=== PATIENT | male | born 1985 | race African-American/Black ===

== ENCOUNTER 2022-05-26 18:36 | Emergency (ER) | payer MEDICAID ==
[~2022-05-26] VITALS: Ht 177.8 cm; Wt 74.8 kg
[2022-05-26] MEDS ORDERED: predniSONE 20 MG TABLET ONE (18:50)
--- NOTE | 2022-05-26 18:53 | NUR ---
PREDNISONE PO GIVEN INDICATED, JESUS MANUEL WELL
[2022-05-26] MEDS ORDERED: ALBUTEROL FS 2.5 MG/3 ML VIAL.NEB ONE ×2 (18:56→19:58)
[2022-05-26] MEDS ORDERED: IPRATROPIUM NEB FS 0.5 MG/2.5 ML AMPUL.NEB ONE ×2 (18:56→19:58)
[2022-05-26] MEDS ORDERED: ALBUTEROL FS 2.5 MG/3 ML VIAL.NEB NEB ONE ×2 (19:00→20:00)
[2022-05-26] MEDS ORDERED: predniSONE 20 MG TABLET PO ONE (19:00)
[2022-05-26] MEDS ORDERED: IPRATROPIUM NEB FS 0.5 MG/2.5 ML AMPUL.NEB NEB ONE ×2 (19:00→20:00)
[2022-05-26] MEDS ORDERED: ALBU8.5H8 INH (19:14)
[2022-05-26] MEDS ORDERED: PRED50TA PO (19:14)
--- NOTE | 2022-05-26 20:01 | NUR ---
RT AT PT'S BEDSIDE FOR BREATHING TX
[2022-05-26] MEDS ORDERED: SILD20TA2 PO (20:27)
--- NOTE | 2022-05-26 20:35 | NUR ---
Patient discharged to home in stable condition. Written and verbal after care instructions given. Patient verbalizes understanding of instruction.
[2022-05-26 20:38] VITALS: BP 108/68
== END 2022-05-26 20:43 | disposition home or self-care (01) ==
LOC: ER 18:40
DX: J45.901 Unspecified asthma with (acute) exacerbation (principal); J45.909 Unspecified asthma, uncomplicated; Z79.51 Long term (current) use of inhaled steroids; Z79.899 Other long term (current) drug therapy
CPT/HCPCS: 99285; 94640 ×2; J7512

== ENCOUNTER 2024-08-14 02:45 | Emergency (ER) | payer MEDICAID ==
[~2024-08-14] VITALS: Ht 177.8 cm; Wt 72.6 kg
[~2024-08-14 02:45] MED LIST: ALBU8.5H8 INH; PRED50TA PO; SILD20TA2 PO
[2024-08-14] MEDS ORDERED: dexaMETHasone SOD PHOSPHATE 4 MG/ML VIAL ONE (03:18)
[2024-08-14] MEDS: IPRATROPIUM NEB FS 0.5 MG/2.5 ML AMPUL.NEB NEB ONE (03:23)
[2024-08-14] MEDS: ALBUTEROL FS 2.5 MG/0.5 ML VIAL.NEB NEB ONE ×2 (03:23→05:13)
[2024-08-14 03:24] VITALS: O2SAT 99
[2024-08-14] MEDS ORDERED: ALBUTEROL FS 2.5 MG/0.5 ML VIAL.NEB ONE ×2 (03:28→05:15)
[2024-08-14] MEDS ORDERED: IPRATROPIUM NEB FS 0.5 MG/2.5 ML AMPUL.NEB ONE ×2 (03:28→05:15)
[2024-08-14] MEDS: dexaMETHasone SOD PHOSPHATE 4 MG/ML VIAL IM ONE (03:30)
[2024-08-14 03:34] VITALS: O2SAT 99
[2024-08-14 03:44] VITALS: O2SAT 99
[2024-08-14] MEDS ORDERED: dexaMETHasone SOD PHOSPHATE 0 ML ONE (04:42)
[2024-08-14] MEDS ORDERED: PRED50TA PO (04:59)
[2024-08-14] MEDS ORDERED: predniSONE 20 MG TABLET ONE (05:09)
[2024-08-14] MEDS: predniSONE 50 MG TABLET PO ONE (05:12)
[2024-08-14 05:13] VITALS: O2SAT 99
[2024-08-14 05:18] VITALS: O2SAT 99
[2024-08-14 05:29] VITALS: BP 153/72; TEMP 97.5; O2SAT 99
== END 2024-08-14 05:29 | disposition home or self-care (01) ==
LOC: ER 02:47
DX: J98.01 Acute bronchospasm (principal); R03.0 Elevated blood-pressure reading, without diagnosis of hypertension; Z79.52 Long term (current) use of systemic steroids; Z85.118 Personal history of other malignant neoplasm of bronchus and lung
CPT/HCPCS: 99283; 94640; J1100; J7512